=== PATIENT | female | born 2000 | race Caucasian/White ===

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

== ENCOUNTER → 2021-01-12 | Outpatient (CLI) | payer OTHER | LOC: LAB 13:33 | DX: Z32.00 Encounter for pregnancy test, result unknown (principal); O20.0 Threatened abortion | CPT/HCPCS: 36415; 84702; 86900; 86901 ==

== ENCOUNTER → 2021-10-13 | Outpatient (CLI) | payer OTHER | LOC: LAB 15:30 | DX: Z32.00 Encounter for pregnancy test, result unknown (principal) | CPT/HCPCS: 36415; 84702 ==

== ENCOUNTER → 2021-10-20 | Outpatient (CLI) | payer OTHER | LOC: LAB 09:54 | DX: Z32.00 Encounter for pregnancy test, result unknown (principal) | CPT/HCPCS: 36415; 84702 ==

== ENCOUNTER → 2021-10-22 | Outpatient (CLI) | payer OTHER | LOC: LAB 09:12 | DX: Z53.9 Procedure and treatment not carried out, unspecified reason (principal) | CPT/HCPCS: 36415; 84702 ==

== ENCOUNTER → 2021-11-01 | Outpatient (CLI) | payer OTHER | LOC: LAB 18:08 | DX: Z32.00 Encounter for pregnancy test, result unknown (principal) | CPT/HCPCS: 36415; 84702 ==

== ENCOUNTER 2021-12-21 00:45 | Emergency (ER) | payer OTHER | END 2021-12-21 01:23 | disposition left against medical advice (07) | LOC: ER1 00:45 | DX: Z53.21 Procedure and treatment not carried out due to patient leaving prior to being seen by health care provider (principal) | CPT/HCPCS: J7030 ==

== ENCOUNTER 2021-12-21 01:35 | Emergency (ER) | payer OTHER ==
[2021-12-21 03:06] LABS: HEMOGLOBIN 12.2 gm/dl (12.3-15.3); RED BLOOD COUNT 3.94 M/UL (4.00-5.10); WHITE BLOOD COUNT 12.8 K/UL (4.5-11.0)
[2021-12-21 03:29] LABS: BUN/CREATININE RATIO 9 (0-10)
== END 2021-12-21 04:33 | disposition home or self-care (01) ==
LOC: ER1 01:35
PROVIDERS: Physician Assistant
DX: O99.891 Other specified diseases and conditions complicating pregnancy (principal); R51.9 Headache, unspecified; Z3A.13 13 weeks gestation of pregnancy; Z86.79 Personal history of other diseases of the circulatory system
CPT/HCPCS: 80048; 85025; 99284

== ENCOUNTER 2022-05-01 15:03 | Outpatient (CLI) | payer OTHER | END 2022-05-01 16:50 | disposition home or self-care (01) | LOC: GENOP 15:03 | DX: O36.8120 Decreased fetal movements, second trimester, not applicable or unspecified (principal); Z3A.22 22 weeks gestation of pregnancy | CPT/HCPCS: 59025; 81001 ==

== ENCOUNTER 2022-05-21 03:16 | Outpatient (CLI) | payer OTHER | END 2022-05-21 05:58 | disposition home or self-care (01) | LOC: GENOP 03:16 → EDSTATUS 06:12 | DX: O99.891 Other specified diseases and conditions complicating pregnancy (principal); M54.50 Low back pain, unspecified; R10.10 Upper abdominal pain, unspecified; Z3A.35 35 weeks gestation of pregnancy | CPT/HCPCS: 96360; 96372; J3105 ==

== ENCOUNTER → 2022-05-29 | Outpatient (CLI) | payer OTHER | LOC: GENOP 14:49 | DX: O47.02 False labor before 37 completed weeks of gestation, second trimester (principal); Z3A.22 22 weeks gestation of pregnancy | CPT/HCPCS: G0463 ==

== ENCOUNTER 2022-06-05 16:44 | Inpatient (IN) | payer OTHER ==
[~2022-06-05] VITALS: Ht 165.1 cm; Wt 84.8 kg
[2022-06-05 18:16] LABS: HEMOGLOBIN 11.7 gm/dl (12.3-15.3); RED BLOOD COUNT 3.91 M/UL (4.00-5.10); WHITE BLOOD COUNT 10.8 K/UL (4.5-11.0)
[2022-06-05] MEDS ORDERED: PRENATABS RX T1 EACH PO (18:37)
[2022-06-07 06:19] LABS: HEMOGLOBIN 10.5 gm/dl (12.3-15.3)
[2022-06-08] MEDS ORDERED: DOCUSATE SODIU100 MG PO (12:04)
[2022-06-08] MEDS ORDERED: HYDROCODON-ACE1 EAC4 PO (12:04)
[2022-06-08] MEDS ORDERED: IBUPROFEN600 MG PO (12:04)
== END 2022-06-08 16:30 | disposition home or self-care (01) | DRG 788 ==
LOC: GENOP 16:44 → OB 16:47 → CDU 06-06 20:56 → OB 06-06 20:57
PROVIDERS: Obstetrics & Gynecology; ADMIT Obstetrics & Gynecology
PROC: 10907ZC Drainage of Amniotic Fluid, Therapeutic from Products of Conception, Via Natural or Artificial Opening (ICD-10-PCS; 2022-06-06)
PROC: 4A1HXCZ Monitoring of Products of Conception, Cardiac Rate, External Approach (ICD-10-PCS; 2022-06-06)
PROC: 10H073Z Insertion of Monitoring Electrode into Products of Conception, Via Natural or Artificial Opening (ICD-10-PCS; 2022-06-06)
PROC: 10H07YZ Insertion of Other Device into Products of Conception, Via Natural or Artificial Opening (ICD-10-PCS; 2022-06-06)
PROC: 10D00Z1 Extraction of Products of Conception, Low, Open Approach (ICD-10-PCS; principal; 2022-06-06 20:25)
DX: O13.4 Gestational [pregnancy-induced] hypertension without significant proteinuria, complicating childbirth (principal); Z37.0 Single live birth; O36.63X0 Maternal care for excessive fetal growth, third trimester, not applicable or unspecified; Z3A.37 37 weeks gestation of pregnancy; I49.8 Other specified cardiac arrhythmias; K90.0 Celiac disease; O62.2 Other uterine inertia; O66.40 Failed trial of labor, unspecified; O76 Abnormality in fetal heart rate and rhythm complicating labor and delivery; Z88.8 Allergy status to other drugs, medicaments and biological substances; Z82.49 Family history of ischemic heart disease and other diseases of the circulatory system; Z83.3 Family history of diabetes mellitus; Z80.9 Family history of malignant neoplasm, unspecified; Z83.49 Family history of other endocrine, nutritional and metabolic diseases
CPT/HCPCS: 36415; 81001; 82800; 85014; 85018; 85025; C9113; J0456; J0690; J1170; J2210; J2250; J2405; J2590; J2704; J7030; J7120